=== PATIENT | female | born 1990 | race American Indian/Alaskan Native ===

== ENCOUNTER 2024-05-28 16:28 | Observation (INO) | payer OTHER, SELFPAY ==
[2024-05-28 16:29] VITALS: BMI 46.3
[2024-05-28 16:39] VITALS: BP 131/92; PULSE 116; RESP 18; TEMP 37.1; O2SAT 99
--- NOTE | 2024-05-28 16:46 | PD.EDRME ---
Rapid Medical Screening Exam RME Arrival date/time: 05/28/24 16:28 33-year-old female presents the emergency department today patient had outpatient ultrasound today was referred to the ER for further evaluation for possible cholecystitis Chief Complaint: Abdominal Pain Time Seen by Provider: 05/28/24 16:32 Vital signs: Vital Signs Temperature 98.7 F 05/28/24 16:39 Pulse Rate 116 H 05/28/24 16:39 Respiratory Rate 18 05/28/24 16:39 Blood Pressure 131/92 H 05/28/24 16:39 Pulse Oximetry (%) 99 05/28/24 16:39 Oxygen Delivery Method Room Air 05/28/24 16:39
[2024-05-28 17:22] LABS: Basophils % (Auto) 0 % (0-2.5); Eosinophils # (Auto) 0.1 Thou/mm3 (0.0-0.5); Eosinophils % (Auto) 0 % (0-10); Hematocrit 39.4 % (36.0-46.0); Immature Granulocytes % (Auto) 0 % (0-0); Immature Granulocytes Auto 0.05 Thou/mm3 (0.00-0.00); Lymphocytes # (Auto) 2.8 Thou/mm3 (1.0-4.8); Lymphocytes % (Auto) 17 % (10-50); Mean Corpuscular Volume 85 fL (80-100); Monocytes # (Auto) 1.1 Thou/mm3 (0.0-0.8); Monocytes % (Auto) 7 % (0-12); Neutrophils # (Auto) 11.9 Thou/mm3 (1.8-7.7); Neutrophils % (Auto) 75 % (37-80); Nucleated Red Blood Cell % 0 /100 WBC (0); Platelet Count 315 Thou/mm3 (140-440); RDW Standard Deviation 42.8 fL (36.4-46.3); Red Blood Count 4.64 Miln/mm3 (4.00-5.20); White Blood Count 15.9 Thou/mm3 (3.6-11.0)
[2024-05-28 17:57] LABS: Alanine Aminotransferase 17 U/L (10-49); Albumin, Serum 5.1 gm/dL (3.5-5.0); Albumin/Globulin Ratio 1.5 (1.2-2.2); Alkaline Phosphatase 107 U/L (46-116); Anion Gap 8 (7-16); Aspartate Amino Transferase 20 U/L (0-34); BUN/Creatinine Ratio 14 Ratio (12-20); Bilirubin,Total 0.4 mg/dL (0.3-1.2); Blood Urea Nitrogen 11 mg/dL (9-23); Calcium 9.4 mg/dL (8.3-10.6); Calcium (Corrected) 9.4 mg/dL (8.5-10.1); Carbon Dioxide 25.7 mMol/L (20.0-31.0); Chloride 100 mMol/L (98-107); Creatinine (Component) 0.8 mg/dL (0.6-1.3); Estimated Creatinine Clearance 119.9 mL/min (>60); Globulin 3.5 gm/dL (2.3-3.5); Glucose 105 mg/dL (74-106); Lipase 30 U/L (12-53); Osmolality,Calculated 267 (275-295); Potassium 3.5 mMol/L (3.4-5.1); Sodium 134 mMol/L (136-145); Total Protein 8.6 gm/dL (5.7-8.2); eGFR > 60 See Note
[2024-05-28 18:25] LABS: Collection Type, Urine Clean Catch
[2024-05-28 18:38] LABS: Bilirubin,Urine Negative (Negative); Blood,Urine Trace (Negative); Clarity,Urine Turbid (Clear/Hazy); Color,Urine Yellow (Lt Yel-Yel); Glucose, Urine Negative (Negative); Ketones,Urine 3+ (Negative); Leukocyte Esterase,Urine Positive (Negative); Nitrite,Urine Negative (Negative); Protein,Urine 1+ (Neg - Trace); RBC,Urine 10 /hpf (0-3); Specific Gravity,Urine 1.027 (1.001-1.035); Urobilinogen,Urine Negative mg/dL (0.0-1.0); WBC,Urine 22 /hpf (0-5)
[2024-05-28 18:39] LABS: Bacteria,Urine Rare; Culture Indicated,Urine Contaminated; Hyaline Casts,Urine < 1 /hpf (0-1); Squamous Epithelial Cell,Urine 21 /hpf (0-5)
[2024-05-28 18:40] LABS: HCG Qualitative,Urine Negative
--- NOTE | 2024-05-28 19:30 | EDNOTE_ITS ---
ED Abdominal Pain RME/HPI General Chief Complaint: Abdominal Pain Stated complaint: SENT BY MOB, + CHOLECYSTITIS, C/O ABD PAIN N/V Time seen by provider: 05/28/24 16:32 Arrival date/time: 05/28/24 16:28 Limitations: no limitations RME / HPI RME / HPI narrative: 05/28/24 16:28 33-year-old female presents the emergency department today patient had outpatient ultrasound today was referred to the ER for further evaluation for possible cholecystitis ----- Dr. Sánchez's Main ED Evaluation: 33yo female with a history of gallstones presents to the ED for a chief complaint of right-sided abdominal pain x 2 days. Patient describes her pain as aching in nature, rating it a 6 out of 10 in severity. She states she hasn't been able to eat. She reports associated N/V (5x), chest and back pain, and chills. She denies any diarrhea, cough, runny nose or any other associated symptoms. States her last bowel movement was 3 days ago. Related Data Home Medications ?Medication ?Instructions ?Recorded ?Confirmed No Known Home Medications 05/07/18 05/28/24 Allergies Allergy/AdvReac Type Severity Reaction Status Date / Time Penicillins Allergy Verified 05/28/24 16:31 Review of Systems Review of Systems Systems Reviewed: All systems reviewed, normal except as documented Past Medical History Past Medical History CARDIAC: Negative Congestive Heart Failure RESPIRATORY: Negative Chronic Obstructive Pulmonary Disease (COPD) GENITOURINARY: Negative Renal Disease ENDOCRINE: Negative Diabetes Mellitus Type 1 or Diabetes Mellitus Type 2 Social History SMOKING STATUS: Never smoker ED Exam General Limitations: Present no limitations General appearance: Present alert, in no apparent distress, obese and other (nontoxic, not diaphoretic) Head Head exam: Present atraumatic Eye Eye exam: Present normal appearance, PERRL and EOMI ENT ENT exam: Present normal exam, normal oropharynx and mucous membranes moist Neck Neck exam: Present normal inspection, full ROM and trachea midline Chest Chest inspection: Present normal inspection and symmetric chest wall rise Respiratory Respiratory exam: Present normal lung sounds bilaterally Cardiovascular Cardiovascular exam: Present regular rate, normal rhythm and normal heart sounds Abdominal Exam Abdominal exam: Present soft, normal bowel sounds and Villagran's sign; Absent rebound Abdominal tenderness: Present epigastrium and mild Extremities Exam Extremities exam: Present normal inspection and full ROM Back Exam Back exam: Present normal inspection and full ROM; Absent CVA tenderness (R) or CVA tenderness (L) Neurological Exam Neurological exam: Present alert, oriented X3 and CN II-XII intact Psychiatric Psychiatric exam: Present normal affect and normal mood Skin Skin exam: Present warm, dry, intact and normal color Course Quality Measures none Orders Category Date Time Status COVID-19 Screening Questionnaire NOW Care 05/28/24 20:15 Active Decision to Admit X1 Care 05/28/24 20:14 Active NPO NOW Care 05/28/24 20:15 Active Diet NPO (NOW) Diet 05/28/24 20:15 Completed CBC Stat Lab 05/28/24 17:10 Completed Comprehensive Metabolic Panel Stat Lab 05/28/24 17:10 Completed HCG Qualitative,Urine Stat Lab 05/28/24 17:40 Completed Lipase Stat Lab 05/28/24 17:10 Completed UA, C/S IF [Urinalysis, C/S if Indicated] Stat Lab 05/28/24 17:40 Completed Sodium Chloride 0.9% 500 ml [Ns] 500 ml Med 05/28/24 20:14 Discontinued IV 999 mls/hr Vital Signs Vital signs: Vital Signs Temperature 98.7 F 05/28/24 16:39 Pulse Rate 116 H 05/28/24 16:39 Respiratory Rate 18 05/28/24 16:39 Blood Pressure 131/92 H 05/28/24 16:39 Pulse Oximetry (%) 99 05/28/24 16:39 Oxygen Delivery Method Room Air 05/28/24 16:39 Pulse ox is 99% on room air, which is normal according to my interpretation. Abdominal Pain MDM MDM Narrative MDM Narrative:: No evidence of cholangitis. Blood pressure is normal here. Slightly tachycardic otherwise white count of 15,000. Pain controlled with morphine and started on antibiotics. The patient is allergic to penicillin so Levaquin is ordered. Discussed with Dr. Nice the general surgeon on-call who will admit the patient and likely take her to the OR tomorrow for cholecystectomy. Patient data External records reviewed:: [facility] previous records (Per chart review, patient has no relevant previous ED visits or admissions.) Clinical information provided by:: patient Social determinants that could affect healthcare access:: none Patient has the following chronic illnesses:: none How is presenting disease/condition affected by chronic disease/condition?: no chronic disease Evaluation data The following diagnostics were reviewed and interpreted by me:: lab results and radiology exam(s) Lab and/or radiology exams considered but not ordered:: none Interpretation Summary: WBC count is elevated at 15.9, CMP is normal, UA is contaminated, HCG is negative, according to my interpretation. ---- I have personally reviewed the radiology data and agree with the radiologist's interpretation below: [facility] Report Signed Patient: HEATHER VILLAFANA. Record#: [id number] Birthdate: 1990 Age/Sex: 33 / F Location: [facility] Attending Dr: Bryanna Hartley PA-C ([facility]) Ordering Physician: Bryanna Hartley PA-C ([facility]) Date of Service: 05/28/24 Procedure(s): US abdomen Accession Number(s): [id number] cc: Bryanna Hartley PA-C ([facility]); Ezequiel Garcia MD~ Examination: Abdomen sonogram, complete Date and time of exam: May 28, 2024 1549 hrs. Indications: Severe abdominal pain today. Technique: Multiple real-time grayscale transabdominal sonographic images of the abdomen have been obtained. Findings: Multiple gallstones Gallbladder wall 1.2 cm with edema Common bile duct 0.3 cm Pancreatic head 2.6 cm Aorta not enlarged Liver 18.6 cm irregular contour fatty infiltration Normal hepatopedal portal venous flow Patent IVC Right kidney 11.3 x 5.4 x 5.5 cm renal cortex 1.5 cm Left kidney 10.1 x 5.0 x 5.9 cm cortex 1.5 cm Mild left renal parenchymal scar formation Spleen 9.1 cm Impression: Acute calculus cholecystitis, consider HIDA scan or MRCP follow-up Dictated By: Ezequiel Garcia MD Signed By: <Electronically signed by Ezequiel Garcia MD in OV> 05/28/24 4913 Medications / Prescriptions Medications or Prescriptions considered but not ordered:: none Medication administrations:: Medication Administration History Acetaminophen (Acetaminophen 325 Mg Tablet) 650 mg PO Q6H PRN PRN Reason: PAIN SCALE 1-3 (mild Stop: 06/27/24 20:14 Sodium Chloride (Ns) 1,000 mls @ 125 mls/hr IV .Q8H MICHELLE Stop: 06/27/24 20:14 Last Admin: 05/28/24 23:59 Dose: 125 mls/hr Documented By: GIBRAN Levofloxacin/Dextrose (Levaquin Ivpb) 750 mg in 150 mls @ 100 mls/hr IV QDAY@2100 MICHELLE Stop: 06/04/24 20:29 Last Infusion: 05/28/24 23:02 Dose: Infused Documented By: Admin: 05/28/24 21:24 Dose: 100 mls/hr Documented By: GIBRAN Ketorolac Tromethamine (Ketorolac Inj 30 Mg/Ml Vial) 15 mg IVP Q6H PRN PRN Reason: PAIN SCALE 4-6 (Moderate Stop: 06/02/24 20:14 Morphine Sulfate (Morphine Sulf Inj 10 Mg/Ml Vial) 4 mg IVP Q4H PRN PRN Reason: PAIN SCALE 7-10 (Severe Stop: 06/02/24 20:14 Discontinued Medications Sodium Chloride (Ns) 500 mls @ 999 mls/hr IV .Q31M ONE Stop: 05/28/24 20:44 Last Admin: 05/28/24 21:23 Dose: Not Given Documented By: GIBRAN Non-Admin Reason: Discontinued see above Consultations Consultation(s) initiated? (list below): Yes Consultation #1 (Physician, Specialty, Details): Discussed case with [Marce Howell] from [general surgery] regarding [consultation]. Discussed patients ED course, exam findings, labs, and radiology results. States the patient does not need a MRCP or HIDA scan. Accepts the patient for admission. Time: 20:12 Diagnosis Differential diagnosis abdominal pain: pancreatitis and other (cholecystitis, cholangitis, CBD stone, gallstone pancreatitis, other biliary disease) Most likely diagnosis given after review of the tests above:: see below Admission Indicated Admission indicated?: indicated Admission Request Was there a request for admission?: Yes Admission Attestation Admission request attestation: Discussed case with [] from Hospitalist service regarding admission. Discussed patients ED course, exam findings, labs, and radiology results. The Hospitalist [agrees,declines] to accept the patient for admission. Disposition Plan Disposition Plan: Admit Critical Care Time Critical Care Time Critical Care Time: Yes Total Critical Care Time (min.): 35 Attestation: The high probability of sudden, clinically significant deterioration in the patient?s condition required the highest level of my preparedness to intervene urgently. The services I provided to this patient were to treat and/or prevent clinically significant deterioration. Services included the following: chart data review, reviewing nursing notes and/or old charts, documentation time, outbound sales consultant collaboration regarding findings and treatment options, medication orders and management, direct patient care, vital sign assessments and ordering, interpreting and reviewing diagnostic studies and lab tests. Aggregate critical care time includes only time during which I was engaged in work directly related to the patient?s care, as described above, whether at bedside or elsewhere in the Emergency Department. It did not include time spent performing other reported procedures or the services of residents, students, nurses or physician assistants. Discharge Plan Plan Patient Disposition: Admit Acute Care w/in Hospital Patient condition on transfer: Stable Problem List Clinical Impression: Acute calculous cholecystitis
[2024-05-28 19:56] VITALS: BP 146/91; PULSE 104; RESP 18; TEMP 37.2; O2SAT 96
--- NOTE | 2024-05-28 20:00 | PC.NURSE ---
PT HERE FROM HOME WITH COMPLAINTS OF RIGHT SIDE ABDOMINAL PAIN FOR PAST 2 DAYS THAT RADIATES TO BACK AND CHEST. PT ALSO REPORTS NAUSEA AND VOMITING. PT WENT TO CLINIC TODAY AND WAS SENT TO HAVE A ULTRASOUND DONE. AFTER US DONE PT WAS TOLD TO COME TO ER. PT DENIES ANY PAST MEDICAL HISTORY OR MEDICATIONS.
[2024-05-28] MEDS: LEVOFLOXACIN/D5W 750MG IVPB 750 MG/150 ML BAG 100 MG IV (21:24)
[2024-05-28 22:25] VITALS: BP 138/91; PULSE 102; RESP 19; TEMP 37.1; O2SAT 97
[2024-05-28] MEDS: SODIUM CHLORIDE 0.9% 1000 ML 1,000 ML 125 ML IV (23:59)
[2024-05-29] VITALS (15 sets, daily range): BP systolic 122–179; BP diastolic 77–99; PULSE 80–103; RESP 12–20; TEMP 35.2–37.1; O2SAT 92–99; BMI 46.1; BMI 46.5
--- NOTE | 2024-05-29 06:50 | PC.NURSE ---
DR. LALA AT BEDSIDE ASSESSING PT AT THIS TIME
--- NOTE | 2024-05-29 07:41 | ESHP_ITS ---
HPI Date of Admission 05/28/24 20:15 HPI 33F presenting with abdominal pain. Pt reports pain began the night before presentation after eating, with severe RUQ pain radiating to the back. Pt reports having nausea/vomiting and chills, and states she has had similar pain in the past and had been advised she had gallstones. Workup consistent with acute cholecystitis PMH: Obesity PSHx: None Meds: None Allergies: pt states her PCN allergy is remote and she is unsure of the reaction if any Social hx: Nonsmoker Review of Systems Review of Systems ROS Unobtainable: All systems reviewed & no additional complaints except as documented Meds Home Medications and Allergies Home Medications ?Medication ?Instructions ?Recorded ?Confirmed ?Type No Known Home Medications 05/07/18 05/28/24 History Allergies Allergy/AdvReac Type Severity Reaction Status Date / Time Penicillins Allergy Verified 05/28/24 16:31 Exam Vital Signs Temp Pulse Resp BP Pulse Ox O2 Del Method 98.7 F 88 18 133/79 H 97 Room Air 05/29/24 06:14 05/29/24 06:14 05/29/24 06:14 05/29/24 06:14 05/29/24 06:14 05/29/24 06:14 Constitutional Constitutional: no acute distress Routine Respiratory Exam Respiratory: Present no resp distress Routine Abdominal Exam Abdominal: Present soft and tenderness (mild RUQ tenderness); Absent distended, rebound or guarding Results Results: Laboratory Laboratory results: results reviewed Results: Imaging US - abdomen: report reviewed and image reviewed Assessment & Plan Plan 33F presenting with signs and symptoms of acute cholecystitis. I explained benefits/risks of surgery including need for conversion to open, bleeding, i nfection, hernia, leakage of/injury to biliary structures requiring further procedures or surgery which would require transfer to another hospital. Pt expressed understanding and agrees to proceed Quality Measures Quality Measures none
--- NOTE | 2024-05-29 08:15 | PC.CC ---
Pt Ting Bocanegra is a 33 yr old female admitted to hospitalist services for acute cholecysititis. APPLIQUER CC met with pt at bedside to complete initial assessment. At time of encounter pt is noted to be alert and oriented to person, place and situation. Pt expressed understanding admission orders. Pt able to confirm demographic information. Pt is from home [address] [place] [address], where she lives with her Rich Bocanegra [phone]. Pt designates her as surrogate DM. Pt is gainfully employed. At baseline pt is independent with ambulation and with completion of her ADLs. Pt reports that she is not diabetic and is not on dialysis. Pt does not require supplemental O2 in the home. Pt is followed by [facility]. At time of D/c pt will return home, with her providing transport.
--- NOTE | 2024-05-29 15:00 | ESOP_ITS ---
Date of Procedure 05/29/24 Pre Op Diagnosis Acute cholecystitis Post Op Diagnosis Same Procedure Laparoscopic cholecystectomy Findings Acutely inflamed gallbladdder with large stones Procedure Description After discussion of risks and benefits, patient was brought to the operating room, SCDs were placed and general anesthesia was induced. She received preoperative antibiotics and was prepped and draped in the usual sterile fashion. After timeout a supraumbilical incision was made and the tissues were elevated. A Veress needle was placed through the incision and proper positioning was confirmed with a drop test. At that point the abdomen was insufflated to 15 mmHg. The Veress needle was then exchanged for a 5 mm camera using a Visiport technique. There were no signs of injury from the point of entry. 3 additional ports were placed under direct vision, one 12 mm epigastrium, one 5 mm right subcostal and one 5 mm right anterior axillary line. Patient was placed in reversed Trendelenburg with left side down. The gallbladder was noted to be firm and difficult to grasp so it was first aspirated with return of approximately 100 cc of green bile. The fundus of the gallbladder was then grasped and retracted cephalad and the infundibulum was grasped and retracted laterally. Dissection was undertaken bluntly, it was some what difficult given the amount of inflammation and fat encasing the cystic triangle. Ultimately the critical view of safety was achieved and the cystic duct and cystic artery were clipped and transected in the usual fashion. Of note there were was a small accessory artery posterior to the gallbladder which was clipped and transected in the usual fashion. The gallbladder was removed from the gallbladder bed using electrocautery. Hemostasis of the gallbladder bed was achieved with electrocautery and reinforced with Surgicel powder. The specimen was removed in an Endo Catch bag via the epigastric port, and the epigastric fascia was closed with 0 Vicryl suture using a Adriano-Stephy. Pneumoperitoneum was released while the remaining ports were removed under direct vision. Incisions were irrigated and infiltrated with half percent Marcaine for a total of 30 cc. Incisions were closed with 4 Monocryl and reinforced with Dermabond. Patient was extubated and brought to PACU in stable condition Pathology / specimen Other (Gallbladder) Estimated Blood Loss 50 Surgeon Daina Zheng MD Surgical Staff Operation Date: 05/29/24 12:15 Case Staff Anesthesiologist: Thomas Morales RN First Assistant: Sofia Cortés
--- NOTE | 2024-05-29 15:00 | PD.SURDS ---
Planned Discharge Date 05/29/24 DS: Providers Provider Date of admission: 05/28/24 20:15 Primary care physician: Bryanna Hartley([facility]), [facility] Admitting Provider: Daina Zheng MD Attending Provider on Admission: Daina Zheng MD Attending Provider on DC: Daina Zheng MD Discharging Provider: Daina Zheng MD Diagnosis Discharge Diagnosis (1) Acute calculous cholecystitis: Status: Acute Problem List Completed Was Problem List Reviewed/Reconciled?: Yes Exam Vital Signs Temp Pulse Resp BP Pulse Ox O2 Del Method 97.6 F 98 18 137/77 H 94 L Room Air 05/29/24 11:45 05/29/24 11:45 05/29/24 11:45 05/29/24 11:45 05/29/24 11:45 05/29/24 11:45 Constitutional Constitutional: no acute distress Routine Respiratory Exam Respiratory: Present no resp distress Routine Abdominal Exam Abdominal: Present soft and tenderness (mild tenderness RUQ); Absent distended or rebound Discharge Plan Plan Patient Disposition: HOME (Self Care) Patient condition on transfer: Stable Prescriptions/Referrals Prescriptions/Med Rec: New oxycodone-acetaminophen [Percocet] 5-325 mg tablet 1 tab PO Q6H MDD 6 tabs PRN (Reason: pain) Qty: 10 0RF Referrals: Shantal),CLARE Lara [Primary Care Provider] - Daina Zheng MD [Physician] - (You will receive a phone call to confirm a follow-up appt with me in 2 weeks) Patient/Caregiver Discharge Instructions Other Discharge Activity Instructions:: Avoid lifting objects >10lbs for 6 weeks You may resume showering on 05/31 Your stitches will not need to be removed If you develop worsening pain, nausea/vomiting, fever or jaundice please seek care in ER Education Materials: Cholecystectomy Laparoscopic Dc, Preventing Surgical Site Infections, Adding Flavor to Low-Fat Meals Print Language: Micronesian Stand Alone Forms: Margarette Award Info., Patient Portal Info Letter, Work/Release Restrictions Discharge Order Discharge Orders: Discharge (Routine); Ordered 05/29/24 Ordered By: Daina Zheng Results Results: Laboratory Laboratory results: results reviewed Results: Imaging US - abdomen: report reviewed Procedures Procedure Date 05/29/24 Procedures Laparoscopic cholecystectomy
--- NOTE | 2024-05-29 15:09 | SUR.PHASEI ---
1509: Pt. AAOx4, vitals stable, breathing unlabored, no complaint of pain or nasuea, X4 dressing to ABD CDI, no active bleed noted, report received from Crista REYNOLDS and MD Morales.
[2024-05-29] MEDS: ONDANSETRON INJ 2 MG/ML INJ 2 ML 4 MG IV (15:46)
--- NOTE | 2024-05-29 15:50 | SUR.PHASEI ---
1550: Pt. AAOx4, vitals stable, breathing unlabored, no complaint of pain or nausea, x4 dermabond sites to ABD CDI, no active bleed noted, gave report to Gwen REYNOLDS prior to transfer to room 360, family made aware of transfer to room.
== END 2024-05-29 17:40 | disposition home or self-care (01) ==
LOC: SERX 18:43 → SERHOLD 20:36 → S3NX 05-29 11:46
PROVIDERS: Nurse Practitioner Primary Care; Admitting Provider Surgery; Emergency Provider Emergency Medicine; PCP Nurse Practitioner Family; Visit Provider Surgery
PROC: 0FT44ZZ Resection of Gallbladder, Percutaneous Endoscopic Approach (ICD-10-PCS; CPT 47562; principal; 2024-05-29 12:00)
DX: K80.00 Calculus of gallbladder with acute cholecystitis without obstruction (principal); E66.9 Obesity, unspecified; Z68.42 Body mass index [BMI] 45.0-49.9, adult
CPT/HCPCS: 47562; 36415; 80053; 81001; 81025; 83690; 85025; 96365; 96366; 99291; A4217; A4649; G0378; J0694; J1100; J1885; J1956; J2250; J2405; J2704; J3010; J3490; J7030

== ENCOUNTER → 2024-05-28 | Outpatient (CLI) | payer OTHER, SELFPAY ==
--- NOTE | 2024-05-28 15:36 | XR_ITS ---
Examination: Abdomen sonogram, complete Date and time of exam: May 28, 2024 1549 hrs. Indications: Severe abdominal pain today. Technique: Multiple real-time grayscale transabdominal sonographic images of the abdomen have been obtained. Findings: Multiple gallstones Gallbladder wall 1.2 cm with edema Common bile duct 0.3 cm Pancreatic head 2.6 cm Aorta not enlarged Liver 18.6 cm irregular contour fatty infiltration Normal hepatopedal portal venous flow Patent IVC Right kidney 11.3 x 5.4 x 5.5 cm renal cortex 1.5 cm Left kidney 10.1 x 5.0 x 5.9 cm cortex 1.5 cm Mild left renal parenchymal scar formation Spleen 9.1 cm Impression: Acute calculus cholecystitis, consider HIDA scan or MRCP follow-up
== END | disposition home or self-care (01) ==
PROVIDERS: PCP Nurse Practitioner Family; Referring Provider Nurse Practitioner Family; Visit Provider Nurse Practitioner Family
DX: K81.9 Cholecystitis, unspecified (principal)
CPT/HCPCS: 76700

== ENCOUNTER 2024-06-11 14:57 | Outpatient (AMB) | payer OTHER, SELFPAY ==
[2024-06-11 15:28] VITALS: BP 121/88; PULSE 87; RESP 18; TEMP 36.7; O2SAT 96; BMI 46.3
--- NOTE | 2024-06-11 15:28 | PD.GSCLVISIT ---
Vital Signs - [facility] 06/11/24 15:28 Height 1.57 m Height Method Stated Weight 114.929 kg Weight Measurement Method Standing Scale BMI 46.3 BP 121/88 H Blood Pressure Source Automatic Cuff Blood Pressure Location Right Upper Arm Position Sitting Respiration 18 Pulse 87 Pulse Source Monitor Temp 98.1 F Temp Source Temporal Artery Scan Pulse Oximetry (%) 96 Oxygen Delivery Method Room Air Med/Allergies Allergies & Medications Allergies Penicillins Allergy (Verified 06/11/24 15:29) MA Intake Visit Data Collection New Patient or Established: Established Patient (seen at [facility] within 3 years) Seen by Clinical Staff ONLY (RN/MA): No Reason for Visit:: F/U cholecystectomy Pain Present Currently: No PCP or OBGYN visit in last 3 months: Yes Smoking Status Smoking Status: Never smoker Immunization / Flu Flu Vaccine in the Last 12 Months: No Flu Vaccine Exclusion Criteria: Refused by Patient Past Medical History Past Medical History NEUROLOGIC: Negative Neurological Disorders, Cerebrovascular Accident, Transient Ischemic Attacks (TIA), Dementia, Alzheimer's Disease, Parkinson's Disease, Brain Tumor, Meningitis, Seizures, Epilepsy, Multiple Sclerosis, Cerebral Palsy, Amyotrophic Lateral Sclerosis (ALS/Mary Gehrig's), Guillain-Bellevue Syndrome, Spina Bifida, Paralysis, Peripheral Neuropathy, Garces's Palsy, Subdural Hematoma, Migraine, Head Trauma, Spinal Cord Injury or Traumatic Brain Injury CARDIAC: Negative Cardiac Disorders, Myocardial Infarction, Cardiac Arrhythmia, Atrial Fibrillation, Angina, Heart Murmur, Coronary Artery Disease, Atherosclerotic Heart Disease, Peripheral Vascular Disease, Hypercholesterolemia, Aneurysm, Congestive Heart Failure, Congenital Heart Disease, Valvular Heart Disease, Rheumatic Fever, Cardiomyopathy, Edema, Pericarditis, Cellulitis, Deep Vein Thrombosis, Hypertension, Hypotension or Varicose Veins RESPIRATORY: Negative Chronic Obstructive Pulmonary Disease (COPD), Asthma, Bronchitis, Emphysema, Pneumonia, Pulmonary Fibrosis, Cystic Fibrosis, Tuberculosis, Pulmonary Embolism, Pulmonary Edema or Sleep Apnea GASTROINTESTINAL: Positive Gall Bladder Disease, Gastroesophageal Reflux Disease and Obesity; Negative Gastrointestinal Disorders, Hepatitis, Cirrhosis, Pancreatitis, Celiac Disease, Gastrointestinal Bleed, Esophageal Varices, Dorado's Esophagus, Colitis, Ulcerative Colitis, Diverticulitis, Diverticulosis, Ulcer, Irritable Bowel, Crohn's Disease, Obstructive Bowel, Hiatal Hernia or Hemorrhoids GENITOURINARY: Negative Genitourinary Disorders, Renal Disease, Kidney Stones, Polycystic Kidney Disease, Neurogenic Bladder, Inguinal Hernia, Dialysis or Benign Prostatic Hyperplasia REPRODUCTIVE: Negative Endometriosis, Genital Herpes, Gonorrhea, Pelvic Inflammatory Disease, Previous Pregnancies, Syphilis or Uterine Prolapse MUSCULOSKELETAL: Negative Muscular Dystrophy, Myasthenia Gravis, Marfan's Syndrome, Arthritis, Rheumatoid Arthritis, Osteoporosis, Degenerative Disk Disease, Gout, Scoliosis, Carpal Tunnel Syndrome, Fibromyalgia, Fractures, Degenerative Joint Disease, Osteomyelitis or Poliovirus ENT: Negative Cataracts, Glaucoma, Blind, Retinal Detachment, Macular Degeneration, Ear Infection, Deafness, Head Trauma or Eye Prosthesis ENDOCRINE: Negative Endocrine Disorders, Diabetes Mellitus Type 1, Diabetes Mellitus Type 2, Hypoglycemia, Mchenry's Syndrome, Ralls's Disease, Hyperthyroidism, Hypothyroidism, Parathyroid Disease, Pituitary Disease, Systemic Lupus Erythematosus, Syndrome of Inappropriate Antidiuretic Hormone (SIADH), Adrenal Disease or Graves' Disease HEMATOLOGIC: Negative Blood Disorders, Anemia, Leukemia, Hemophilia, Thalassemia, Sickle Cell Disease or Clotting Problems PSYCHO/SOCIAL: Negative Psychiatric Problems, Schizophrenia, Recreational Drug Use, Bipolar Disorder, Depression, Anxiety, Behavior Problems, Self-Mutilation, Attention Deficit Disorder, Attention Deficit Hyperactivity Disorder, Depression, Post Traumatic Stress Disorder or Eating Disorder OTHER HISTORY: Negative Hospitalization, Autoimmune Disease, Down Syndrome, Autism, Developmental Delay, Shingles, Falls, Blood Transfusions, Blood Transfusion Reaction, Anesthesia Reactions, Organ Transplant, Chemotherapy, Radiation Therapy, Hyperbaric Therapy, MRSA, VRSA, Vancomycin-Resistant Enterococci, Human Immunodeficiency Virus (HIV), Chicken Pox, Measles, Mumps, Rubella (Turkmen Measles), Pertussis, Clostridium Difficile or Cancer Family History FAMILY HISTORY: Positive Family Cardiac Disorders (grandma), Family Gastrointestinal Problems (gallbladder,stomach cancer grandpa), Family Cancer (grandpa) and Family Surgery; Negative Family Psychiatric Problems, Family Respiratory Disorders or Family Anesthesia Reaction Surgical History SURGICAL: Negative Coronary Artery Bypass Graft, Valve Replacement, Pacemaker, Carotid Endarterectomy, Thyroidectomy, Hysterectomy or Organ Transplant Social History SMOKING STATUS: Smoking status: Never smoker SECOND HAND EXPOSURE: second hand exposure: No ALCOHOL FREQUENCY: Alcohol Intake Frequency: holidays/special occasions only HOUSING: Housing: House LIVES WITH: Lives With: Spouse HPI HPI Narrative 33F s/p nacho den 05/29 here for planned follow up. Pt reports she has been feeling well, she has mild R sided back pain but not enough to take any medications, and she has also noted some constipation. She denies any fever, nausea/vomiting and overall feels better than before surgery ROS Review of Systems Systems Reviewed: All systems reviewed, normal except as documented Objective/Exam General General Appearance: alert, cooperative and well groomed Resp Respiratory exam: Absent respiratory distress Abdominal Abdominal exam: Present soft and incision (c/d/i, no erythema, no fluctuance or tenderness); Absent distention or tenderness Results Pathology: chronic cholecystitis with cholelithiasis Assessment & Plan Diagnosis / Problem List (1) Acute calculous cholecystitis: Status: Acute Assessment & Plan: 33F s/p lap den 05/29 for chronic cholecystitis, recovering well Plan: Avoid lifting objects >10lbs for 6 weeks postop F/u as needed Office Procedures GNS Level of Care Nursing/Assessment Patient Status: Established Patient Nursing Assessment/Reassesment: Medication Reconciliation, Update PMH in EMR and Vital Signs Coordination of Care: Complex Care and Chronic Disease 1-5, Education Complex Pt/Fam, 1 Ins Authorization and Staff clarify orders Established Patient Charge Established Patient Point Assignment: 100 Established Patient Point Charge: EP Level 3 (80-115) Patient Portal Questionaires Social History Living Situation History Housing: House Housing Other:: Pt from home Tobacco History Smoking Status: Never smoker Second Hand Smoke Exposure: No Alcohol History Alcohol Intake Frequency: holidays/special occasions only Review of Systems Report any current symptoms Only answer those that you have currently: Past Medical History Past Medical History Have you ever been diagnosed with any of the following: Neurological Problems Cerebrovascular Accident (CVA): No Transient Ischemic Attacks (TIA): No Dementia: No Alzheimer's Disease: No Parkinson's Disease: No Brain Tumor: No Meningitis: No Seizures: No Epilepsy: No Multiple Sclerosis: No Cerebral Palsy: No Amyotrophic Lateral Sclerosis (ALS/Mary Gehrig's): No Guillain-Bellevue Syndrome: No Spina Bifida: No Paralysis: No Peripheral Neuropathy: No Garces's Palsy: No Subdural Hematoma: No Migraine: No Head Trauma: No Spinal Cord Injury: No Traumatic Brain Injury: No Cardiology Problems Myocardial Infarction: No Cardiac Arrhythmia: No Atrial Fibrillation: No Angina: No Heart Murmur: No Coronary Artery Disease: No Atherosclerotic Heart Disease: No Peripheral Vascular Disease: No Hypercholesterolemia: No Aneurysm: No Congestive Heart Failure: No Congenital Heart Disease: No Valvular Heart Disease: No Rheumatic Fever: No Cardiomyopathy: No Edema: No Pericarditis: No Cellulitis: No Deep Vein Thrombosis: No Hypertension: No Hypotension: No Varicose Veins: No Respiratory Problems Chronic Obstructive Pulmonary Disease (COPD): No Asthma: No Bronchitis: No Emphysema: No Pneumonia: No Pulmonary Fibrosis: No Tuberculosis: No Pulmonary Embolism: No Pulmonary Edema: No Sleep Apnea: No Stomache/Intestinal Problems Hepatitis: No Cirrhosis: No Pancreatitis: No Celiac Disease: No Gall Bladder Disease: Yes Gastrointestinal Bleed: No Esophageal Varices: No Dorado's Esophagus: No Colitis: No Ulcerative Colitis: No Diverticulitis: No Diverticulosis: No Ulcer: No Irritable Bowel: No Crohn's Disease: No Obstructive Bowel: No Hiatal Hernia: No Hemorrhoids: No Gastroesophageal Reflux Disease: Yes Obesity: Yes Genital/Urinary Problems Renal Disease: No Kidney Stones: No Polycystic Kidney Disease: No Neurogenic Bladder: No Inguinal Hernia: No Dialysis: No Benign Prostatic Hyperplasia: No Reproductive Problems Endometriosis: No Genital Herpes: No Gonorrhea: No Pelvic Inflammatory Disease: No Previous Pregnancies: No Syphilis: No Uterine Prolapse: No Musculoskeletal Problems Muscular Dystrophy: No Myasthenia Gravis: No Marfan's Syndrome: No Arthritis: No Rheumatoid Arthritis: No Osteoporosis: No Degenerative Disk Disease: No Gout: No Scoliosis: No Carpal Tunnel Syndrome: No Fibromyalgia: No Fractures: No Degenerative Joint Disease: No Osteomyelitis: No Poliovirus: No Head,Eye,Nose,Throat Problems Cataracts: No Glaucoma: No Blind: No Retinal Detachment: No Macular Degeneration: No Chronic Ear Infections: No Deafness: No Eye Prosthesis: No Endocrine Problems Diabetes Mellitus Type 1: No Diabetes Mellitus Type 2: No Hypoglycemia: No Mchenry's Syndrome: No Mauro's Disease: No Hyperthyroidism: No Hypothyroidism: No Parathyroid Disease: No Pituitary Disease: No Systemic Lupus Erythematosus: No Syndrome of Inappropriate Antidiuretic Hormone: No Adrenal Disease: No Graves' Disease: No Blood Problems Anemia: No Leukemia: No Hemophilia: No Thalassemia: No Sickle Cell Disease: No Clotting Problems: No Psychologic Problems Schizophrenia: No Recreational Drug Use: No Bipolar Disorder: No Depression: No Anxiety: No Behavior Problems: No Self-Mutilation: No Attention Deficit Disorder: No Attention Deficit Hyperactivity Disorder: No Depression: No Post Traumatic Stress Disorder: No Eating Disorder: No Other Problems Hospitalization: No Autoimmune Disease: No Down Syndrome: No Autism: No Developmental Delay: No Shingles: No Falls: No Blood Transfusions: No Blood Transfusion Reaction: No Anesthesia Reactions: No Organ Transplant: No Chemotherapy: No Radiation Therapy: No Hyperbaric Therapy: No MRSA: No VRSA: No Vancomycin-Resistant Enterococci: No Human Immunodeficiency Virus (HIV): No Chicken Pox: No Measles: No Mumps: No Rubella (Turkmen Measles): No Pertussis: No Clostridium Difficile: No Cancer: No Surgical History Carotid Endarterectomy: No Coronary Artery Bypass Graft: No Valve Replacement: No Hysterectomy: No Pacemaker: No Thyroidectomy: No
== END 2024-06-11 15:57 | disposition home or self-care (01) ==
LOC: HODSRG 14:57
PROVIDERS: PCP Nurse Practitioner Family; Referring Provider Nurse Practitioner Family; Supervising Provider Surgery; Visit Provider Surgery
DX: Z48.815 Encounter for surgical aftercare following surgery on the digestive system (principal)
CPT/HCPCS: 99213; G0463